=== PATIENT | male | born 1985 | race Caucasian/White ===

== ENCOUNTER 2021-11-16 09:51 | Outpatient (CLI) | payer OTHER ==
--- NOTE | 2021-11-16 15:08 | Ultrasound Report ---
ULTRASOUND ABDOMEN, COMPLETE INDICATION / CLINICAL INFORMATION: ABDOMINAL PAIN. COMPARISON: None available. FINDINGS: PANCREAS: No significant abnormality. ABDOMINAL AORTA: No significant abnormality. IVC: No significant abnormality. LIVER: The liver is normal in size measuring 14.1 cm . No evidence of focal hepatic lesion. Normal he patopedal blood flow within the main portal vein. GALLBLADDER: No significant abnormality. BILE DUCTS: No significant abnormality. Common bile duct measures 3 mm. KIDNEYS: Right: The right kidney measures 11.4 cm. No significant abnormality. Left: The left kidney measures 12.1 cm. No significant abnormality. SPLEEN: The spleen measures 10.9 cm. No significant abnormality. FREE FLUID: None. ADDITIONAL FINDINGS: None. IMPRESSION: 1. No significant sonographic abnormality of the abdomen. Scribed by: Abimbola Price RDMS, RVT, GUTIERREZ Scribed: 11/16/2021 1:28 PM I have reviewed the images, agree with this report, and edited this report as needed. Signer Name: Delvin Doe MD Signed: 11/16/2021 3:04 PM Workstation Name: [id number]
== END 2021-11-16 09:52 | disposition home or self-care (01) ==
LOC: US 09:51
PROVIDERS: ATTEND Family Medicine
DX: R10.9 Unspecified abdominal pain (principal)
CPT/HCPCS: 76700